=== PATIENT | female | born 1975 | race Caucasian/White ===

== ENCOUNTER 2018-01-04 20:05 | Emergency (ER) | payer OTHER ==
[~2018-01-04] VITALS: Ht 175.3 cm; Wt 129.7 kg
[~2018-01-04 20:05] MED LIST: AZITHROMYCIN 2250 MG PO; EFFEXOR XR150 MG PO; HYDROCODON-ACE1 EAC7 PO; HYDROCODONE-APA1 TA1 PO; MOBIC7.5 MG PO; NOHOMEMEDICATIONS; PEPCID40 MG PO; PROAIR HFA8.5 GM PO
[2018-01-04 20:59] LABS: URINE BILIRUBIN NEGATIVE (Negative); URINE BLOOD NEGATIVE (Negative); URINE CLARITY CLEAR; URINE COLOR YELLOW; URINE GLUCOSE-RANDOM NEGATIVE (Negative); URINE KETONES NEGATIVE (Negative); URINE LEUKOCYTES-REFLEX NEGATIVE (Negative); URINE NITRITE-REFLEX NEGATIVE (Negative); URINE PROTEIN NEGATIVE (Negative); URINE SPECIFIC GRAVITY 1.025 (1.005-1.030); URINE UROBILINOGEN 0.2 E.U./dl (0.2-1.0)
[2018-01-04 21:17] LABS: ABSOLUTE BASOPHILS 0.1 thou/uL (0.0-0.2); ABSOLUTE EOSINOPHILS 0.1 thou/uL (0.0-0.7); ABSOLUTE MONOCYTES 0.6 thou/uL (0.0-1.2); ABSOLUTE NEUTROPHILS 5.7 thou/uL (1.6-8.1); BASOPHILS 0.8 %; EOSINOPHILS 1.1 %; HEMATOCRIT 36.6 % (37.0-47.0); LYMPHOCYTES 31.9 %; MCH 25.3 pg (26.0-34.0); MCHC 32.7 g/dL (28.0-37.0); MCV 77.5 fL (80.0-100.0); MPV 6.8 fl. (7.2-11.1); NUCLEATED RBCS 0 /100WBC; PLATELET COUNT* 341 thou/uL (150-400); POLYS 60.2 %; RBC 4.72 mil/uL (4.20-5.00); WBC 9.5 thou/uL (4.0-11.0)
[2018-01-04 21:28] LABS: ANION GAP 9 mmol/L (7-16); BUN 9 mg/dL (7-18); CHLORIDE 103 mmol/L (98-107); CO2 26 mmol/L (21-32); CREATININE 0.9 mg/dL (0.6-1.3); GLUCOSE 135 mg/dL (70-99); POTASSIUM 3.5 mmol/L (3.5-5.1); SODIUM 138 mmol/L (136-145)
[2018-01-04 21:35] LABS: ALBUMIN 3.5 g/dL (3.4-5.0); ALKALINE PHOSPHATASE 73 U/L (46-116); SGOT 22 U/L (15-37); SGPT 29 U/L (30-65); TOTAL BILIRUBIN 0.2 mg/dL (<0.1-1.0); TROPONIN-I LEVEL <0.06 ng/mL (<0.06)
[2018-01-04] MEDS ORDERED: BENZONATATE200 MG PO (21:53)
[2018-01-04] MEDS ORDERED: PREDNISONE 10 M10 M1 PO (21:53)
[2018-01-04] MEDS ORDERED: VENTOLIN HFA INH8 GM INH (21:53)
[2018-01-04 22:01] VITALS: BP 125/76
--- NOTE | 2018-01-05 11:54 | EKG ---
[place] [address] ELECTROCARDIOGRAM REPORT Name: TANA GREENE Room: [facility]#: [id number] Admission: 01/04/18 Attend Phys: Discharge: 01/04/18 Date of : 73 Report #: [id number] THIS REPORT FOR: //name// [facility] ED Test Date: 2018-01-04 Test Time: 20:26:12 Pat Name: TANA GREENE Department: Room: Gender: F Early Childhood Services Coordinator: : 1975 Requested By: Crissy Sands Order Number: [id number] MD: Troy Crespo Measurements Intervals Corea Rate: 83 P: 72 DE: 149 QRS: 58 QRSD: 99 T: 51 QT: 373 QTc: 439 Interpretive Statements Sinus rhythm Compared to ECG 11/16/2010 16:25:56 No significant changes Electronically Signed On 01-05-2018 11:53:55 CDT by Troy Crespo [email or web address] <ELECTRONICALLY SIGNED> By: Troy Crespo MD, [facility] 01/05/18 1153 25 25 Troy Crespo MD, FACC /EPI
== END 2018-01-04 22:01 | disposition home or self-care (01) ==
LOC: M.ERS 20:05
PROVIDERS: Nurse Practitioner
DX: J20.9 Acute bronchitis, unspecified (principal); F17.210 Nicotine dependence, cigarettes, uncomplicated; Z88.0 Allergy status to penicillin; Z88.7 Allergy status to serum and vaccine

== ENCOUNTER → 2018-06-22 | Outpatient (CLI) | payer OTHER ==
[~2018-06-22] MED LIST changes: +BENZONATATE200 MG PO; +PREDNISONE 10 M10 M1 PO; +VENTOLIN HFA INH8 GM INH
== END ==
LOC: M.RAD 13:52
DX: N63.22 Unspecified lump in the left breast, upper inner quadrant (principal); R92.8 Other abnormal and inconclusive findings on diagnostic imaging of breast

== ENCOUNTER 2020-03-17 22:54 | Emergency (ER) | payer OTHER ==
[~2020-03-17] VITALS: Ht 177.8 cm; Wt 129.7 kg
[2020-03-17] MEDS ORDERED: CYMBALTA60 MG PO (23:07)
[2020-03-17] MEDS ORDERED: ROPINIROLE HCL4 M1 PO (23:07)
[2020-03-18] MEDS ORDERED: HYDROCODON-ACE1 EAC8 PO (01:20)
[2020-03-18 01:30] VITALS: BP 133/85
== END 2020-03-18 01:30 | disposition home or self-care (01) ==
LOC: M.ERS 22:54
DX: S52.592A Other fractures of lower end of left radius, initial encounter for closed fracture (principal); S52.091A Other fracture of upper end of right ulna, initial encounter for closed fracture; F17.210 Nicotine dependence, cigarettes, uncomplicated; Z90.89 Acquired absence of other organs; Z98.51 Tubal ligation status; Z88.0 Allergy status to penicillin; Z88.7 Allergy status to serum and vaccine; W05.1XXA Fall from non-moving nonmotorized scooter, initial encounter; Y93.89 Activity, other specified; Y92.89 Other specified places as the place of occurrence of the external cause; Y99.8 Other external cause status